=== PATIENT | female | born 1965 | race Caucasian/White ===

== ENCOUNTER 2016-08-28 21:49 | Emergency (ER) | payer OTHER ==
--- NOTE | ~2016-08-28 | CR173 ---
[facility]. [facility] A Service of [facility] & [facility] RADIOLOGY TEXT RESULTS PATIENT: ROSETTA PEREZ LOCATION: SED : 63 UNIT #: [id number] AGE: [address]: HATTIE ARNOLD SEX: F ORDER DR: [id number] [place] [id number] E MR#: [id number] Acc #: [id number] NAME: ROSETTA PEREZ : 1965 SEX: F STUDY DATE/TIME: 08/28/2016 21:41 UNIT: SED ROOM: STUDY DESCRIPTION: CR Knee 3 Views Rt Attending Physician: Hattie Arnold Ordering Physician: Hazel Not Listed Primary Care Physician: [facility], MEDICAL IMAGING REPORT This report is preliminary unless electronic signature is present. EXAM Right knee, 3 views. HISTORY Fell tonight, twisted ankle, and knee. Right knee pain. FINDINGS 3 views are submitted. Bony elements are intact. Joint space and articular surface are preserved. No fractures are identified. CONCLUSION Negative Dictated by... Jose F El M.D. THIS IS AN ELECTRONICALLY VERIFIED REPORT Jose F El M.D. at 09/01/2016 5:10 PM NIKITA/jalil TD: 08/29/2016 09:32 JOB #: [id number] MEDICAL IMAGING REPORT Page 1 of 1
--- NOTE | ~2016-08-28 | CR20 ---
[facility]. [facility] A Service of [facility] & [facility] RADIOLOGY TEXT RESULTS PATIENT: ROSETTA PEREZ LOCATION: SED : 63 UNIT #: [id number] AGE: [address]: HATTIE ARNOLD SEX: F ORDER DR: [id number] [place] [id number] E MR#: [id number] Acc #: [id number] NAME: ROSETTA PEREZ : 1965 SEX: F STUDY DATE/TIME: 08/28/2016 21:41 UNIT: SED ROOM: STUDY DESCRIPTION: CR Ankle Min 3 Views Lt Attending Physician: Hattie Arnold Ordering Physician: Hazel Not Listed Primary Care Physician: [facility], MEDICAL IMAGING REPORT This report is preliminary unless electronic signature is present. EXAM Left ankle, 3 views. HISTORY Left ankle pain, twisted ankle and fell immediately prior to admission. FINDINGS 3 views are submitted. Bony elements appear intact. No fractures or foreign bodies are seen. CONCLUSION Negative Dictated by... Jose F El M.D. THIS IS AN ELECTRONICALLY VERIFIED REPORT Jose F El M.D. at 09/01/2016 5:10 PM NIKITA/jalil TD: 08/29/2016 09:29 JOB #: [id number] MEDICAL IMAGING REPORT Page 1 of 1
--- NOTE | ~2016-08-28 | CR126 ---
[facility]. [facility] A Service of [facility] & [facility] RADIOLOGY TEXT RESULTS PATIENT: ROSETTA PEREZ LOCATION: SED : 63 UNIT #: [id number] AGE: [address]: HATTIE ARNOLD SEX: F ORDER DR: [id number] [place] [id number] E MR#: [id number] Acc #: [id number] NAME: ROSETTA PEREZ : 1965 SEX: F STUDY DATE/TIME: 08/28/2016 21:41 UNIT: SED ROOM: STUDY DESCRIPTION: CR Foot Complete Min 3 View Lt Attending Physician: Hattie Arnold Ordering Physician: Physician Non-Staff Primary Care Physician: [facility], MEDICAL IMAGING REPORT This report is preliminary unless electronic signature is present. EXAM Left foot 3 views, 08/28/2016 COMPARISON 01/22/2015 HISTORY Twisted foot and ankle today immediately prior to admission. Pain. FINDINGS 3 views of the left foot are obtained. The patient has a hallux valgus deformity. Bony elements otherwise appear intact. No acute fractures are seen. Compared with the old studies of 2014 there has been no change. CONCLUSION Hallux valgus deformity first MTP. No acute findings. Dictated by... Jose F El M.D. THIS IS AN ELECTRONICALLY VERIFIED REPORT Jose F El M.D. at 09/01/2016 5:10 PM NIKITA/rocío TD: 08/29/2016 09:31 JOB #: [id number] MEDICAL IMAGING REPORT
[~2016-08-28 21:49] MED LIST: BACTRIM DS TABL1 TA1 PO; BENADRYL PO; CLEOCIN HCL300 M1 PO; DIFLUCAN PO; GLUCOSAMINE500 M2; MACROBID100 M1 PO; PEPCID PO; PREDNISONE PO; PROBIOTIC1 EAC1; PROTONIX PO; PYRIDIUM PO; TRAMADOL HCL50 M1 PO; VITAMIN D400 UNI2; VOLTAREN75 MG PO
== END 2016-08-28 22:45 | disposition home or self-care (01) ==
LOC: SED 21:49
DX: S96.912A Strain of unspecified muscle and tendon at ankle and foot level, left foot, initial encounter (principal); Z88.0 Allergy status to penicillin; Z88.2 Allergy status to sulfonamides; Z88.5 Allergy status to narcotic agent; Z79.899 Other long term (current) drug therapy; Z91.81 History of falling; Z23 Encounter for immunization; X50.1XXA Overexertion from prolonged static or awkward postures, initial encounter
CPT/HCPCS: 29540; 73562; 73610; 73630; 90471; 90715; 99284

== ENCOUNTER 2016-12-12 19:44 | Emergency (ER) | payer OTHER | END 2016-12-12 22:04 | disposition home or self-care (01) | LOC: SED 19:44 | DX: J06.9 Acute upper respiratory infection, unspecified (principal); K21.9 Gastro-esophageal reflux disease without esophagitis; Z87.442 Personal history of urinary calculi | CPT/HCPCS: 99283 ==